=== PATIENT | male | born 1960 | race Hispanic/Latino ===

== ENCOUNTER 2024-12-11 06:35 | Inpatient (IN) | payer OTHER ==
[2024-12-09 16:32] LABS: BASOPHILS # (AUTO) 0.1 (0.0-0.1); BASOPHILS % 0.7 % (0.0-1.0); EOSINOPHILS # (AUTO) 0.1 (0.0-0.4); EOSINOPHILS % 0.8 % (0.0-6.0); HEMATOCRIT 44.8 % (38.2-49.6); HEMOGLOBIN 14.7 g/dL (14.0-18.0); LYMPHOCYTES # (AUTO) 1.8 (1.0-3.2); LYMPHOCYTES % 23.5 % (18.0-39.1); MEAN CORPUSCULAR HEMOGLOBIN 30.2 pg (28-32); MEAN CORPUSCULAR HGB CONC 32.8 g/dL (31-35); MONOCYTES # (AUTO) 0.6 (0.2-0.8); MONOCYTES % 8.1 % (4.4-11.3); NEUTROPHILS # (AUTO) 5.1 (2.1-6.9); NEUTROPHILS % 66.5 % (38.7-80.0); PLATELET COUNT 219 x10e3/uL (140-360); RED BLOOD COUNT 4.87 x10e6/uL (4.3-5.7); RED CELL DISTRIBUTION WIDTH 13.1 % (11.7-14.4); WHITE BLOOD COUNT 7.67 x10e3/uL (4.8-10.8)
[2024-12-09 17:09] LABS: ANION GAP 13.3 mmol/L (8-16); CALCIUM 9.2 mg/dL (8.4-10.2); CREATININE, SERUM 1.18 mg/dL (0.72-1.25); POTASSIUM 4.3 mmol/L (3.5-5.1)
[~2024-12-11] VITALS: Ht 172.7 cm; Wt 93.0 kg
[~2024-12-11 06:35] MED LIST: AMLODIPINE BESY10 MG PO; CENTRUM ADULTS1 EACH PO; FARXIGA10 MG PO; JARDIANCE10 MG PO; TRADJENTA5 MG PO
[2024-12-11] MEDS: SODIUM CHLORIDE 0.9% 1000ML 1,000 ML ONE (07:36)
[2024-12-11] MEDS: PIPERACILLIN/TAZOBACTAM 3.375 GM VIAL ONE (07:37)
[2024-12-11] MEDS: GENTAMICIN 80MG/NS 100 ML 200 ML IV ONE (07:38)
[2024-12-11] MEDS ORDERED: PROPOFOL IV EMULSION 10 MG/ML 20 ML VIAL ONE (08:07)
[2024-12-11] MEDS ORDERED: LIDOCAINE HCL 2% LOCAL INJ 5 ML SDV VIAL INJ ONE (08:07)
[2024-12-11] MEDS ORDERED: ROCURONIUM BROMIDE 1 ML IV ONE (09:28)
[2024-12-11] MEDS ORDERED: FENTANYL CITRATE/PF 100MCG/2 ML INJ ONE ×2 (09:28→10:27)
[2024-12-11] MEDS ORDERED: ONDANSETRON HCL INJ 2MG/ML 2ML 2 MG/ML VIAL ONE (09:37)
[2024-12-11] MEDS ORDERED: SEVOFLURANE INHAL SOLN 250 ML PEN BTL ONE (09:37)
[2024-12-11] MEDS ORDERED: ACETAMINOPHEN 1000 MG/100 ML 100 ML IV ONE (09:37)
[2024-12-11] MEDS ORDERED: EPHEDRINE SULFATE INJ 50 MG/ML VIAL ONE (09:48)
[2024-12-11] MEDS ORDERED: NEOSTIGMINE 1 MG/ML 10ML VIAL ONE (11:07)
[2024-12-11] MEDS ORDERED: GLYCOPYRROLATE INJ 0.2 MG/ML VIAL ONE (11:07)
[2024-12-11] MEDS ORDERED: ACETAMINOPHEN 1000 MG/100 ML IV PRN (11:30)
[2024-12-11] MEDS ORDERED: DIPHENHYDRAMINE HCL 25 MG CAP PO PRN (11:30)
[2024-12-11] MEDS ORDERED: ONDANSETRON HCL INJ 2MG/ML 2ML 2 MG/ML VIAL IV PRN (11:30)
[2024-12-11 11:53] LABS: BASOPHILS % 0.3 % (0.0-1.0); EOSINOPHILS # (AUTO) 0.1 (0.0-0.4); EOSINOPHILS % 0.6 % (0.0-6.0); HEMOGLOBIN 13.6 g/dL (14.0-18.0); LYMPHOCYTES % 22.5 % (18.0-39.1); MEAN CORPUSCULAR HEMOGLOBIN 29.9 pg (28-32); MEAN CORPUSCULAR HGB CONC 33.2 g/dL (31-35); MEAN CORPUSCULAR VOLUME 90.1 fL (81-99); MONOCYTES # (AUTO) 0.6 (0.2-0.8); MONOCYTES % 6.8 % (4.4-11.3); NEUTROPHILS # (AUTO) 6.1 (2.1-6.9); NEUTROPHILS % 69.5 % (38.7-80.0); PLATELET COUNT 175 x10e3/uL (140-360); RED BLOOD COUNT 4.55 x10e6/uL (4.3-5.7); RED CELL DISTRIBUTION WIDTH 12.9 % (11.7-14.4); WHITE BLOOD COUNT 8.79 x10e3/uL (4.8-10.8)
[2024-12-11 12:17] LABS: CREATININE, SERUM 0.88 mg/dL (0.72-1.25)
[2024-12-11 14:09] VITALS: BP 124/55; PULSE 81; RESP 19; TEMP 97.5; O2SAT 100
[2024-12-11] MEDS: SODIUM CHLORIDE 0.9% 1000ML 1,000 ML IV SCH (14:14)
[2024-12-11 16:00] VITALS: BP 116/54; PULSE 81; RESP 18; TEMP 97.6; O2SAT 100
[2024-12-11 16:47] VITALS: BP 124/55; PULSE 81; RESP 19; TEMP 97.5; O2SAT 100
[2024-12-11] MEDS: SENNA-S TABLET PO SCH (16:57)
[2024-12-11] MEDS ORDERED: ASPIRIN CHEW81 MG PO (17:06)
[2024-12-11 20:00] VITALS: BP 141/63; PULSE 98; RESP 18; TEMP 98.1; O2SAT 100
[2024-12-11 20:26] VITALS: PULSE 101; RESP 18; O2SAT 97
[2024-12-11] MEDS ORDERED: DEXTROSE 50% SYRINGE 50 ML IV PRN (23:30)
[2024-12-11] MEDS ORDERED: HYDRALAZINE HCL 20 MG/ML VIAL IV PRN (23:30)
[2024-12-12] VITALS (8 sets, daily range): BP systolic 116–130; BP diastolic 45–58; PULSE 76–92; RESP 16–19; TEMP 97.9–99.1; O2SAT 95–100
[2024-12-12] MEDS: ACETAMINOPHEN/CODEINE 300MG - 30MG TAB PO PRN
[2024-12-12 04:58] LABS: BASOPHILS % 0.3 % (0.0-1.0); EOSINOPHILS % 0.2 % (0.0-6.0); HEMATOCRIT 39.3 % (38.2-49.6); HEMOGLOBIN 12.8 g/dL (14.0-18.0); LYMPHOCYTES # (AUTO) 1.6 (1.0-3.2); LYMPHOCYTES % 14.3 % (18.0-39.1); MEAN CORPUSCULAR HEMOGLOBIN 29.5 pg (28-32); MEAN CORPUSCULAR HGB CONC 32.6 g/dL (31-35); MEAN CORPUSCULAR VOLUME 90.6 fL (81-99); MONOCYTES # (AUTO) 0.8 (0.2-0.8); MONOCYTES % 7.6 % (4.4-11.3); NEUTROPHILS # (AUTO) 8.5 (2.1-6.9); NEUTROPHILS % 77.1 % (38.7-80.0); PLATELET COUNT 197 x10e3/uL (140-360); RED BLOOD COUNT 4.34 x10e6/uL (4.3-5.7); RED CELL DISTRIBUTION WIDTH 13.4 % (11.7-14.4)
[2024-12-12 05:20] LABS: ANION GAP 12.6 mmol/L (8-16); CREATININE, SERUM 0.93 mg/dL (0.72-1.25); POTASSIUM 4.6 mmol/L (3.5-5.1)
[2024-12-12] MEDS: INSULIN LISPRO 100 UNIT/1 ML 3ML VIAL SQ SCH (08:32)
[2024-12-12] MEDS: PHENAZOPYRIDINE HCL 100 MG TAB PO PRN (15:30)
[2024-12-13] VITALS (9 sets, daily range): BP systolic 115–154; BP diastolic 50–61; PULSE 70–81; RESP 16–19; TEMP 97.4–98.4; O2SAT 96–99
[2024-12-13] MEDS: INSULIN GLARGINE 100 UNITS/ML VIAL SQ SCH
[2024-12-13 04:49] LABS: BASOPHILS # (AUTO) 0.1 (0.0-0.1); BASOPHILS % 0.6 % (0.0-1.0); EOSINOPHILS # (AUTO) 0.1 (0.0-0.4); EOSINOPHILS % 0.9 % (0.0-6.0); HEMATOCRIT 38.1 % (38.2-49.6); HEMOGLOBIN 12.4 g/dL (14.0-18.0); LYMPHOCYTES # (AUTO) 1.7 (1.0-3.2); MEAN CORPUSCULAR HGB CONC 32.5 g/dL (31-35); MEAN CORPUSCULAR VOLUME 92.3 fL (81-99); MONOCYTES # (AUTO) 0.8 (0.2-0.8); MONOCYTES % 9.4 % (4.4-11.3); NEUTROPHILS # (AUTO) 6.1 (2.1-6.9); NEUTROPHILS % 69.6 % (38.7-80.0); PLATELET COUNT 176 x10e3/uL (140-360); RED BLOOD COUNT 4.13 x10e6/uL (4.3-5.7); RED CELL DISTRIBUTION WIDTH 13.5 % (11.7-14.4); WHITE BLOOD COUNT 8.82 x10e3/uL (4.8-10.8)
[2024-12-13 05:17] LABS: CALCIUM 8.1 mg/dL (8.4-10.2); CREATININE, SERUM 0.83 mg/dL (0.72-1.25)
[2024-12-14] VITALS: BP 121/58; PULSE 68; RESP 16; TEMP 98.1; O2SAT 100
[2024-12-14 06:30] LABS: BASOPHILS % 0.4 % (0.0-1.0); EOSINOPHILS # (AUTO) 0.2 (0.0-0.4); EOSINOPHILS % 2.3 % (0.0-6.0); HEMATOCRIT 37.4 % (38.2-49.6); HEMOGLOBIN 12.3 g/dL (14.0-18.0); LYMPHOCYTES # (AUTO) 1.4 (1.0-3.2); MEAN CORPUSCULAR HEMOGLOBIN 29.9 pg (28-32); MEAN CORPUSCULAR HGB CONC 32.9 g/dL (31-35); MEAN CORPUSCULAR VOLUME 90.8 fL (81-99); MONOCYTES # (AUTO) 0.8 (0.2-0.8); MONOCYTES % 10.5 % (4.4-11.3); NEUTROPHILS % 67.3 % (38.7-80.0); PLATELET COUNT 181 x10e3/uL (140-360); RED BLOOD COUNT 4.12 x10e6/uL (4.3-5.7); RED CELL DISTRIBUTION WIDTH 13.2 % (11.7-14.4); WHITE BLOOD COUNT 7.42 x10e3/uL (4.8-10.8)
[2024-12-14 06:43] LABS: ANION GAP 13.1 mmol/L (8-16); CALCIUM 8.6 mg/dL (8.4-10.2); CREATININE, SERUM 0.71 mg/dL (0.72-1.25); POTASSIUM 4.1 mmol/L (3.5-5.1)
[2024-12-14 06:54] VITALS: BP 125/66; PULSE 102; RESP 20; TEMP 98.8; O2SAT 98
[2024-12-14 08:31] VITALS: BP 141/58; PULSE 63; RESP 17; TEMP 97.9; O2SAT 96
[2024-12-14 08:49] VITALS: BP 141/58; PULSE 63; RESP 17; TEMP 97.9; O2SAT 96
[2024-12-14 12:00] VITALS: BP 136/65; PULSE 67; RESP 18; TEMP 98.1; O2SAT 99
[2024-12-14] MEDS: ACETAMINOPHEN 325 MG TAB PO PRN (14:19)
== END 2024-12-14 15:40 | disposition home or self-care (01) | DRG 713 ==
LOC: OR 06:35 → PACU V 11:30 → MED/SURG 14:14
PROVIDERS: ADMIT Urology; ATTEND Urology
PROC: 0T7D8ZZ Dilation of Urethra, Via Natural or Artificial Opening Endoscopic (ICD-10-PCS; 2024-12-11)
PROC: BT141ZZ Fluoroscopy of Kidneys, Ureters and Bladder using Low Osmolar Contrast (ICD-10-PCS; 2024-12-11)
PROC: 0VB08ZZ Excision of Prostate, Via Natural or Artificial Opening Endoscopic (ICD-10-PCS; principal; 2024-12-11 09:26)
PROC: 0VB03ZX Excision of Prostate, Percutaneous Approach, Diagnostic (ICD-10-PCS; 2024-12-11 09:26)
DX: N40.1 Benign prostatic hyperplasia with lower urinary tract symptoms (principal); N13.8 Other obstructive and reflux uropathy; N39.0 Urinary tract infection, site not specified; N41.9 Inflammatory disease of prostate, unspecified; R31.0 Gross hematuria; R39.11 Hesitancy of micturition; R39.14 Feeling of incomplete bladder emptying; R39.15 Urgency of urination; R35.0 Frequency of micturition; R35.1 Nocturia; R31.29 Other microscopic hematuria; N35.916 Unspecified urethral stricture, male, overlapping sites; N32.89 Other specified disorders of bladder; N32.81 Overactive bladder; R97.20 Elevated prostate specific antigen [PSA]; I12.9 Hypertensive chronic kidney disease with stage 1 through stage 4 chronic kidney disease, or unspecified chronic kidney disease; E11.22 Type 2 diabetes mellitus with diabetic chronic kidney disease; N18.9 Chronic kidney disease, unspecified; E11.42 Type 2 diabetes mellitus with diabetic polyneuropathy; Z79.84 Long term (current) use of oral hypoglycemic drugs; E78.5 Hyperlipidemia, unspecified; E66.9 Obesity, unspecified; Z68.31 Body mass index [BMI] 31.0-31.9, adult; Z79.899 Other long term (current) drug therapy
CPT/HCPCS: 36415; 74420; 76872; 76998; 80048; 82948; 83735; 85025; 87086; 88305; 93005; 94799; C1758; J1580; J2003; J2405; J2543; J2710; J7030